=== PATIENT | male | born 1980 | race Caucasian/White ===

== ENCOUNTER 2019-07-27 18:29 | Emergency (ER) | payer BC ==
[2019-07-27] MEDS ORDERED: Sodium Chloride 0.9% 10 ML Syringe FLUSH PRN (18:38)
--- NOTE | 2019-07-27 18:38 | EDM.PDOC ---
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 Assessment:: As above Plan: As above. Extensive precautions were given to the patient and his , who are in agreement with the treatment plan. See Patient Instructions for further treatment and plan.
[2019-07-27] MEDS ORDERED: Bacitracin/Neomycin/Polymyxin B Oint 0.9 GM U/D Packet TOP ONE (18:42)
[2019-07-27 19:15] LABS: CHLORIDE,CL 98 mmol/L (98-107); SODIUM,NA 137 mmol/L (136-145)
[2019-07-27 19:42] LABS: BARBITURATE SCREEN,URINE NEGATIVE (NEGATIVE); BENZODIAZEPINES SCREEN,URINE NEGATIVE (NEGATIVE); TCA SCREEN,URINE NEGATIVE (NEGATIVE); THC SCREEN,URINE 50 NG/ML NEGATIVE (NEGATIVE)
== END 2019-07-27 19:55 | disposition home or self-care (01) ==
LOC: LL.ED 18:29
DX: S01.01XA Laceration without foreign body of scalp, initial encounter (principal); S20.212A Contusion of left front wall of thorax, initial encounter; S00.03XA Contusion of scalp, initial encounter; M15.0 Primary generalized (osteo)arthritis; I10 Essential (primary) hypertension; I49.3 Ventricular premature depolarization; F41.8 Other specified anxiety disorders; I45.2 Bifascicular block; K21.9 Gastro-esophageal reflux disease without esophagitis; Z79.899 Other long term (current) drug therapy
CPT/HCPCS: 36415; 71101-LT; 80053; 80305-QW; 81001; 82150; 83605; 83690; 83735; 84550; 85025; 85610; 85730; 87086; 99284-25; G0480; J2001

== ENCOUNTER 2020-12-09 21:30 | Emergency (ER) | payer BC ==
[2020-12-09] MEDS ORDERED: Sodium Chloride 0.9% 10 ML Syringe FLUSH PRN (21:51)
[2020-12-09] MEDS ORDERED: Sodium Chloride 0.9% 1,000 ML IV ONE (21:51)
[2020-12-09] MEDS ORDERED: LORazepam 2 MG/ML SDV IVPUSH ONE (21:51)
--- NOTE | 2020-12-09 21:52 | EDM.PDOC ---
ED HPI GENERAL MEDICAL PROBLEM - General Chief Complaint: General Stated Complaint: HIGH BLOOD PRESSURE, GENERAL FEELING OF UNWELL Time Seen by Provider: 12/09/20 21:33 Source of Information: Reports: Patient, Family History Limitations: Reports: No Limitations - History of Present Illness INITIAL COMMENTS - FREE TEXT/NARRATIVE: Patient comes to ER complaining of anxiety. Reports that he drank too much last night. Usually drinks 3-4 [place] nightly but had higher amount yesterday. Dry heaves/decreased PO intake today. BP elevated. Has history of anxiety. Also history of LBBB which was noted on EKG back in 2013 here during ER visit. At that time there was concern that patient might have acute coronary syndrome but that was ruled out by [facility]. No diagnosis of CAD/VA. Denies chest pain. No fevers/chills. Feels hungover. No vision change/runny nose/sore throat. No cough/wheeze/SOB No chest pain/palpitations/syncope No bowel changes/hematemesis/blood in stool/abdominal pain. Has had nausea/emesis as noted above. No urinary changes. No focal neuro changes/weakness/limb changes. Denies DTs if he does not drink ETOH. - Related Data Allergies Allergy/AdvReac Type Severity Reaction Status Date / Time No Known Drug Allergies Allergy NKDA Verified 12/09/20 21:39 Home Meds: Home Meds Metoprolol Succinate [Toprol XL] 50 mg PO DAILY 11/22/13 [History] Omeprazole Magnesium [Prilosec Otc] 20 mg PO DAILY 11/22/13 [History] Lisinopril 5 mg PO DAILY 09/25/17 [History] Acetaminophen 650 mg PO Q4HR PRN 07/27/19 [History] Ibuprofen [Advil] 400 mg PO Q6H PRN 07/27/19 [History] Past Medical History HEENT History: Reports: Impaired Vision Cardiovascular History: Reports: Arrhythmia, Hypertension, Other (See Below). 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 PVCs initially diagnosed in September 2017. Gastrointestinal History: Reports: Gastritis, GERD, Other (See Below) Other Gastrointestinal History: Benign hyperplastic gastric polyp at the greater curvature by EGD in September 2017 as below Musculoskeletal History: Reports: Arthritis, Fracture, Osteoarthritis, Other (See Below) Other Musculoskeletal History: Mid radial and ulnar fracture at age 9. Right calcaneus fracture at age 10. Neurological History: Reports: Concussion, Headaches, Chronic, Head Trauma, Other (See Below) Other Neuro History: Head concussion on 01/03/12 with trauma code at that time. Psychiatric History: Reports: Addiction, Anxiety, Depression, Other (See Below) Other Psychiatric History: Possible alcohol abuse history as below. 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 - Infectious Disease History Infectious Disease History: Reports: Chicken Pox, MRSA (Of the hand in 2006) Other Infectious Disease History: mrsa - hand - Past Surgical History HEENT Surgical History: Reports: None Cardiovascular Surgical History: Reports: None GI Surgical History: Reports: EGD, Hernia Repair/Other, Other (See Below) Other GI Surgeries/Procedures: EGD with gastric polypectomy on 09/28/17. Inguinal Hernia repair as an infantside unknown. Neurological Surgical History: Reports: None Other Musculoskeletal Surgeries/Procedures:: arm surgery - Past Imaging History Past Imaging History: Reports: CAT Scan (CT of the sinuses on 02/19/18. CT of the abdomen and pelvis on 09/08/17. CT of the chest on 09/08/17 and 05/04/14. CT of the head and C-spine on 01/03/12), PFT (2013), Sleep Study (2013), Ultrasound (Gallbladder ultrasound on 03/21/14.) Social & Family History - Family History Cardiac: Reports: CAD, Hypertension, VA, Stent, Other (See Below) Other Cardiac Family History: Maternal grandmother with fatal VA at age 78. Maternal grandfather with fatal VA in his 50s. Maternal aunt with PTCA/stent in her 70s. Hypertension in parents. : Reports: Renal Calculus, Other (See Below) Other Family History: Father with urolithiasis. Neurological: Reports: CVA, TIA, Other (See Below) Other Neurological Family History: Paternal grandfather with CVA in his 60s. Dad with TIA at age 70. Endocrine/Metabolic: Reports: Diabetes, type II, Hypothyroidism, IDDM, Other (See Below) Other Endocrine/Metabolic Family History: Mother with possible hypothyroidism. Paternal grandfather with IDDM. Oncologic: Reports: Other (See Below) Other Oncologic Family History: Maternal uncle with unknown type of fatal bone marrow cancer in his 60s. - Tobacco Use Tobacco Use Status *Q: Never Tobacco User - Caffeine Use Caffeine Use: Reports: Soda (12 sodas per day), Tea (Very occasional). Denies: Coffee, Energy Drinks Other Caffeine Use: regular pop - Alcohol Use Alcohol Use History: Yes Days Per Week of Alcohol Use: 7 Number of Drinks Per Day: 4 (Patient admits to 3-4+ [place] Lights daily. Denies hard liquor use) Total Drinks Per Week: 28 Alcohol Use Frequency: Daily - Recreational Drug Use Recreational Drug Use: No Drug Use in Last 12 Months: No - Living Situation & Occupation Living situation: Reports: with Family, (3 children) Occupation: Employed ([employer]) ED ROS GENERAL - Review of Systems Review Of Systems: Comprehensive ROS is negative, except as noted in HPI. ED EXAM, GENERAL - Physical Exam Exam: See Below Exam Limited By: No Limitations General Appearance: Alert, WD/WN, No Apparent Distress Eye Exam: Bilateral Eye: EOMI, PERRL Ears: Normal External Exam, Hearing Grossly Normal Nose: No: Nasal Deformity, Nasal Swelling, Nasal Drainage Throat/Mouth: Normal Lips, Normal Voice, No Airway Compromise Head: Atraumatic, Normocephalic Neck: Supple, Full Range of Motion Respiratory/Chest: No Respiratory Distress, Lungs Clear, Normal Breath Sounds, No Accessory Muscle Use, Chest Non-Tender Cardiovascular: Normal Peripheral Pulses, Regular Rate, Rhythm, No Edema, No Murmur Peripheral Pulses: 2+: Radial (L), Radial (R), Dorsalis Pedis (L), Dorsalis Pedis (R) GI/Abdominal: Normal Bowel Sounds, Soft, Non-Tender, No Distention (Male) Exam: Deferred Rectal (Males) Exam: Deferred Back Exam: No: Muscle Spasm Extremities: Non-Tender, No Pedal Edema, Normal Capillary Refill Neurological: Alert, Oriented, CN II-XII Intact, Normal Cognition, Normal Gait, No Motor/Sensory Deficits Psychiatric: Normal Affect, Normal Mood Skin Exam: Warm, Dry, Intact, Normal Color #1 Interpretation EKG Date: 12/09/20 Time: 21:34 Rhythm: NSR Rate (Beats/Min): 77 [place]: Normal P-Wave: Present QRS: LBBB ST-T: Normal QT: Normal Comparison: No Change (previous EKG from 2013 showed similar LBBB.) Course - Vital Signs Last Recorded V/S: Last Vital Signs Temp 37.0 C 12/09/20 21:39 Pulse 67 12/09/20 22:45 Resp 16 12/09/20 22:45 BP 114/75 12/09/20 22:45 Pulse Ox 93 L 12/09/20 22:45 - Orders/Labs/Meds Orders: Active Orders 24 hr Category Date Time Status Saline Lock Insert [OM.PC] Routine Oth 12/09/20 21:51 Ordered Labs: Laboratory Tests 12/09/20 12/09/20 Range/Units 21:55 21:55 WBC 10.3 H (4.0-10.2) K/uL RBC 5.23 (4.33-5.41) M/uL Hgb 15.8 (13.1-16.8) g/dL Hct 44.3 (39.0-49.0) % MCV 84.7 (84.0-98.0) fL MCH 30.2 (28.2-33.3) pg MCHC 35.7 (31.7-36.0) g/dL RDW 12.9 (11.2-14.1) % Plt Count 221 (150-350) K/uL Neut % (Auto) 81.2 H (45.0-80.0) % Lymph % (Auto) 11.0 (10.0-50.0) % [place] % (Auto) 7.4 (2.0-14.0) % Eos % (Auto) 0.1 (0.0-5.0) % Baso % (Auto) 0.3 (0.0-2.0) % Neut # (Auto) 8.39 H (1.40-7.00) K/uL Lymph # (Auto) 1.14 (0.50-3.50) K/uL [place] # (Auto) 0.77 (0.00-1.00) K/uL Eos # (Auto) 0.01 (0.00-0.50) K/uL Baso # (Auto) 0.03 (0.00-0.20) K/uL Sodium 135 L (136-145) mmol/L Potassium 4.0 (3.5-5.1) mmol/L Chloride 97 L (98-107) mmol/L Carbon Dioxide 24.2 (21.0-32.0) mmol/L BUN 13 (7-18) mg/dL Creatinine 0.95 (0.51-1.17) mg/dL Est Cr Clr Drug Dosing TNP Estimated GFR (MDRD) > 60 mL/min Glucose 102 H (70-99) mg/dL Calcium 8.9 (8.5-10.1) mg/dL Magnesium 1.9 (1.8-2.4) mg/dL Total Bilirubin 0.7 (0.2-1.0) mg/dL AST 24 (15-37) U/L ALT 42 (12-78) U/L Alkaline Phosphatase 63 (46-116) IU/L Troponin I 0.000 (0.000-0.056) ng/mL Total Protein 7.7 (6.4-8.2) g/dL Albumin 4.4 (3.4-5.0) g/dL Ethyl Alcohol 0.001 (0.000-0.080) g/dL Meds: Medications Discontinued Medications Generic Name Dose Route Start Last Admin Trade Name Freq PRN Reason Stop Dose Admin Sodium Chloride 1,000 mls @ 999 mls/hr 12/09/20 21:51 12/09/20 21:58 Normal Saline IV 12/09/20 22:51 999 mls/hr .BOLUS ONE Administration Lorazepam 1 mg 12/09/20 21:51 12/09/20 21:58 Ativan IVPUSH 12/09/20 21:52 1 mg ONETIME ONE Administration Ondansetron HCl 4 mg 12/09/20 21:59 12/09/20 22:37 Zofran IVPUSH 12/09/20 22:00 4 mg ONETIME ONE Administration Pantoprazole Sodium 40 mg 12/09/20 22:00 12/09/20 22:36 Protonix Iv IVPUSH 12/09/20 22:01 40 mg ONETIME ONE Administration Sodium Chloride 10 ml 12/09/20 21:51 Saline Flush FLUSH ASDIRECTED PRN Keep Vein Open Thiamine HCl 100 mg 12/09/20 21:59 12/09/20 22:37 Vitamin B-1 IVPUSH 12/09/20 22:00 100 mg ONETIME ONE Administration - Re-Assessments/Exams Free Text/Narrative Re-Assessment/Exam: 12/09/20 22:05 Patient denies chest pain. Insists that his feeling of unwellness is due to excess ETOH and increased anxiety. Baseline labs drawn. EKG showed that he continues to have LBBB which was noted back in 2013. Plan to given IV fluids/Zofran/Ativan. Will observe for improved BP/less anxiety in response to interventions. Thiamine added given potential for chronic excess ETOH use and the potential for thiamine deficiency. Long time spent discussing lifestyle changes that could be very beneficial for him, including a cleaner laboratory equipment diet and reduction/cessation of ETOH. Recommended to patient that he consider these in addition to arranging close follow up with primary care provider. Patient and his agreeable with plan. Departure - Departure Time of Disposition: 23:00 Disposition: Home, Self-Care 01 Condition: Good Clinical Impression: Anxiety, Dehydration Hangover Qualifiers: Complication of substance-induced condition: uncomplicated Qualified Code(s): F10.120 - Alcohol abuse with intoxication, uncomplicated - Discharge Information *PRESCRIPTION DRUG MONITORING PROGRAM REVIEWED*: Not Applicable *COPY OF PRESCRIPTION DRUG MONITORING REPORT IN PATIENT LORIE: Not Applicable Forms: ED Department Discharge Additional Instructions: Continue to work on good hydration (water) and rest. Advance activity as tolerated. Highly recommend adopting a better diet/reducing alcohol use as we discussed in the ER. Otherwise these problems will return/worsen. Follow up with your provider for the anxiety and continued treatment of BP/any med changes that might be needed. Sepsis Event Note (ED) - Focused Exam Vital Signs: Vital Signs Temp Pulse Resp BP Pulse Ox 12/09/20 22:45 67 16 114/75 93 L 12/09/20 22:30 67 19 123/81 98 12/09/20 22:00 69 20 141/89 H 98 12/09/20 21:39 37.0 C 82 19 159/97 H 100 - My Orders Last 24 Hours: My Active Orders 12/09/20 21:51 Saline Lock Insert [OM.PC] Routine - Assessment/Plan Last 24 Hours: My Active Orders 12/09/20 21:51 Saline Lock Insert [OM.PC] Routine
[2020-12-09] MEDS ORDERED: Thiamine 200 MG/2 ML MDV IVPUSH ONE (21:59)
[2020-12-09] MEDS ORDERED: Ondansetron 4 MG/2 ML SDV IVPUSH ONE (21:59)
[2020-12-09] MEDS ORDERED: Pantoprazole 40 MG Vial IVPUSH ONE (22:00)
[2020-12-09 22:19] LABS: CHLORIDE,CL 97 mmol/L (98-107); SODIUM,NA 135 mmol/L (136-145)
== END 2020-12-09 23:15 | disposition home or self-care (01) ==
LOC: LL.ED 21:30
DX: F41.9 Anxiety disorder, unspecified (principal); E86.0 Dehydration; F10.120 Alcohol abuse with intoxication, uncomplicated; Y90.4 Blood alcohol level of 80-99 mg/100 ml; K21.9 Gastro-esophageal reflux disease without esophagitis; I10 Essential (primary) hypertension; Z79.899 Other long term (current) drug therapy
CPT/HCPCS: 36415; 80053; 80307; 83735; 84484; 85025; 96361; 96374; 96375; 99284; C9113; J2060; J2405; J3411; J7030; 93010

== ENCOUNTER 2021-10-09 16:09 | Emergency (ER) | payer BC ==
[2021-10-09] MEDS ORDERED: Sodium Chloride 0.9% 10 ML Syringe FLUSH PRN (16:20)
[2021-10-09] MEDS ORDERED: Aspirin 81 MG Tab.Chew PO ONE (16:20)
--- NOTE | 2021-10-09 16:28 | EDM.PDOC ---
ED HPI GENERAL MEDICAL PROBLEM - General Chief Complaint: General Stated Complaint: sweats, muscle aches, SOB, chest pressure Time Seen by Provider: 10/09/21 16:15 Source of Information: Reports: Patient, Provider (PCP) History Limitations: Reports: No Limitations - History of Present Illness INITIAL COMMENTS - FREE TEXT/NARRATIVE: Jose Daniel is a 40-year-old male with a past medical history significant for essential hypertension, noncompliance to medical treatments, positive stress test in the past for which he did not follow-up with cardiology. He presented to the emergency department on 10/09/2021 from his clinic with initial reports from primary provider of atypical chest pain that radiated to the back and left arm. On arrival patient appeared mildly distressed, he reported body aches and subjective low-grade elevated temperature of 10 days duration. He did not endorse chest pain but did say that he had some epigastric area discomfort and pressure for the previous 10 days. Associated symptoms include intermittent diaphoresis. Patient is not vaccinated against influenza or COVID-19, he does not wear a mask in public nor do his children or significant other, he is unaware of any sick contacts. He has tried resting at home for his symptoms but this has not improved them. They have continued to worsen over the last 10 days. He said that the catalyst to presenting to the emergency department today was extensive body aches. Nothing makes it worse, nothing makes it better, he has never had anything like this in the past, this does not remind him of when he had pain and a positive stress test previously. Time of day does not make a difference. Onset: Gradual Onset Date: 09/29/21 Duration: Day(s): (10 days since onset), Getting Worse (body aches are significantly worse) Quality: Reports: Ache Severity: Mild Improves with: Reports: None Worsens with: Reports: None Context: Reports: Other (unknown) Associated Symptoms: Reports: Diaphoresis (intermittent), Fever/Chills (subjective. low grade with tmax ~100.0), Headaches (present for 10 days. ), Malaise, Other (chest pressure/epigastric pressure). 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) - Related Data Allergies Allergy/AdvReac Type Severity Reaction Status Date / Time No Known Drug Allergies Allergy NKDA Verified 10/09/21 16:30 Home Meds: Home Meds Metoprolol Succinate [Toprol XL] 50 mg PO DAILY 11/22/13 [History] Omeprazole Magnesium [Prilosec Otc] 20 mg PO DAILY 11/22/13 [History] Lisinopril 5 mg PO DAILY 09/25/17 [History] Acetaminophen 650 mg PO Q4HR PRN 07/27/19 [History] Ibuprofen [Advil] 400 mg PO Q6H PRN 07/27/19 [History] Past Medical History HEENT History: Reports: Impaired Vision (glasses) Cardiovascular History: Reports: Arrhythmia, Hypertension, Other (See Below) Other Cardiovascular History: 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 PVCs initially diagnosed in September 2017. positive stress test 02/07/21, non compliant with cardiology follow up Gastrointestinal History: Reports: GERD Other Gastrointestinal History: Benign hyperplastic gastric polyp at the greater curvature by EGD in September 2017 as below Musculoskeletal History: Reports: Arthritis, Fracture, Osteoarthritis, Other (See Below) Other Musculoskeletal History: Mid radial and ulnar fracture at age 9. Right calcaneus fracture at age 10. Neurological History: Reports: Concussion, Headaches, Chronic, Head Trauma, Other (See Below) Other Neuro History: Head concussion on 01/03/12 with trauma code at that time. Psychiatric History: Reports: Addiction, Anxiety, Depression, Other (See Below) Other Psychiatric History: Possible alcohol abuse history as below. 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 - Infectious Disease History Infectious Disease History: Reports: Chicken Pox, MRSA Other Infectious Disease History: mrsa - hand - Past Surgical History HEENT Surgical History: Reports: None Cardiovascular Surgical History: Reports: None GI Surgical History: Reports: EGD, Hernia Repair/Other, Other (See Below) Other GI Surgeries/Procedures: EGD with gastric polypectomy on 09/28/17. Inguinal Hernia repair as an infantside unknown. Neurological Surgical History: Reports: None Other Musculoskeletal Surgeries/Procedures:: arm surgery - Past Imaging History Past Imaging History: Reports: CAT Scan (CT of the sinuses on 02/19/18. CT of the abdomen and pelvis on 09/08/17. CT of the chest on 09/08/17 and 05/04/14. CT of the head and C-spine on 01/03/12), PFT (2013), Sleep Study (2014), Ultrasound (Gallbladder ultrasound on 03/21/14.) Social & Family History - Family History Cardiac: Reports: CAD, Hypertension, NH, Stent, Other (See Below) Other Cardiac Family History: Maternal grandmother with fatal NH at age 78. Maternal grandfather with fatal NH in his 50s. Maternal aunt with PTCA/stent in her 70s. Hypertension in parents. : Reports: Renal Calculus, Other (See Below) Other Family History: Father with urolithiasis. Neurological: Reports: CVA, TIA, Other (See Below) Other Neurological Family History: Paternal grandfather with CVA in his 60s. Dad with TIA at age 70. Endocrine/Metabolic: Reports: Diabetes, type II, Hypothyroidism, IDDM, Other (See Below) Other Endocrine/Metabolic Family History: Mother with possible hypothyroidism. Paternal grandfather with IDDM. Oncologic: Reports: Other (See Below) Other Oncologic Family History: Maternal uncle with unknown type of fatal bone marrow cancer in his 60s. - Tobacco Use Tobacco Use Status *Q: Never Tobacco User - Caffeine Use Caffeine Use: Reports: Energy Drinks, Soda Other Caffeine Use: regular pop - Alcohol Use Alcohol Use History: Yes Days Per Week of Alcohol Use: 2 Number of Drinks Per Day: 4 Total Drinks Per Week: 8 Alcohol Use in Last Twelve Months: Yes Alcohol Use Frequency: Weekly Desires Substance Cessation Medication: Refuses FDA Approved Med - Recreational Drug Use Recreational Drug Use: No Drug Use in Last 12 Months: No - Sexual History Sexual History: Reports: Single Partner - Living Situation & Occupation Living situation: Reports: with Family, (3 children) Occupation: Employed ([employer]) ED ROS GENERAL - Review of Systems Review Of Systems: See Below Constitutional: Reports: Fever, Chills, Malaise, Weakness HEENT: Reports: No Symptoms Respiratory: Denies: Shortness of Breath, Cough, Sputum, Hemoptysis Cardiovascular: Reports: Other (chest pressure/epigastric pressure) Endocrine: Reports: No Symptoms GI/Abdominal: Reports: No Symptoms : Reports: No Symptoms Musculoskeletal: Reports: Muscle Pain (diffuse) Skin: Reports: No Symptoms Neurological: Reports: No Symptoms Psychiatric: Reports: No Symptoms Hematologic/Lymphatic: Reports: No Symptoms Immunologic: Reports: No Symptoms ED EXAM, GENERAL - Physical Exam Exam: See Below Exam Limited By: Uncooperative General Appearance: Alert, Mild Distress Eye Exam: Bilateral Eye: EOMI Ears: Normal External Exam Nose: Normal Inspection, Normal Mucosa Head: Atraumatic, Normocephalic Neck: Normal Inspection, Full Range of Motion Respiratory/Chest: No Respiratory Distress, Lungs Clear, Normal Breath Sounds, No Accessory Muscle Use, Chest Non-Tender Cardiovascular: Regular Rate, Rhythm, No JVD, No Murmur, No Rub GI/Abdominal: Soft (Male) Exam: Deferred Rectal (Males) Exam: Deferred Back Exam: Full Range of Motion Extremities: Normal Range of Motion Neurological: Alert, Oriented, Normal Cognition Skin Exam: Warm, Dry. No: Diaphoretic #1 Interpretation EKG Date: 10/09/21 Rhythm: NSR [place]: LAD-Left Raritan Deviation (NSR: no acute ischemic changes noted.) P-Wave: Present QRS: Normal ST-T: Normal QT: Normal Course - Vital Signs Last Recorded V/S: Last Vital Signs Temp 98.5 F 10/09/21 16:17 Pulse 85 10/09/21 16:17 Resp 18 10/09/21 16:17 BP 114/75 10/09/21 16:17 Pulse Ox 100 10/09/21 16:17 - Orders/Labs/Meds Orders: Active Orders 24 hr Category Date Time Status Blood Glucose Check, Bedside [RC] ONETIME Care 10/09/21 16:20 Active Cardiac Monitoring [RC] . DIRECTED Care 10/09/21 16:20 Active EKG Documentation Completion [RC] ASDIRECTED Care 10/09/21 16:22 Active Oxygen Therapy [RC] PRN Care 10/09/21 16:20 Active Peripheral IV Care [RC] . DIRECTED Care 10/09/21 16:22 Active Pulse Oximetry [RC] CONTINUOUS Care 10/09/21 16:20 Active Nothing per Oral Now Diet [DIET] Diet 10/09/21 Breakfast Active Chest 1V Frontal [CR] Stat Exams 10/09/21 16:22 Taken Sodium Chloride 0.9% [Saline Flush] Med 10/09/21 16:20 Active 10 ml FLUSH ASDIRECTED PRN Peripheral IV Insertion Adult [OM.PC] Stat Oth 10/09/21 16:20 Ordered Medication Orders Sodium Chloride (Sodium Chloride 0.9% 10 Ml Syringe) 10 ml FLUSH ASDIRECTED PRN PRN Reason: Keep Vein Open Labs: Laboratory Tests 10/09/21 10/09/21 10/09/21 Range/Units 16:15 16:25 16:25 PT 10.9 (9.6-11.3) SEC INR 1.1 D-Dimer, Quantitative (0-400) ng/mL Sodium 137 (136-145) mmol/L Potassium 3.8 (3.5-5.1) mmol/L Chloride 98 (98-107) mmol/L Carbon Dioxide 28.6 (21.0-32.0) mmol/L Anion Gap 10.4 (7-15) meq/L BUN 14 (7-18) mg/dL Creatinine 1.40 H (0.51-1.17) mg/dL Est Cr Clr Drug Dosing TNP Estimated GFR (MDRD) 56 mL/min Glucose 100 H (70-99) mg/dL Lactic Acid (0.4-2.0) mmol/L Calcium 8.7 (8.5-10.1) mg/dL Magnesium 2.5 H (1.8-2.4) mg/dL Ferritin (8-388) ng/mL Total Bilirubin 0.4 (0.2-1.0) mg/dL AST 36 (15-37) U/L ALT 54 (12-78) U/L Alkaline Phosphatase 72 (46-116) IU/L Troponin I High Sens (<=76) ng/L Total Protein 7.8 (6.4-8.2) g/dL Albumin 4.0 (3.4-5.0) g/dL Influenza Type A RNA Negative (NEGATIVE) RSV RNA (INAAT) Negative (NEGATIVE) Influenza Type B RNA Negative (NEGATIVE) SARS-CoV-2 RNA (SHARON) Positive H (NEGATIVE) 10/09/21 10/09/21 10/09/21 Range/Units 16:25 16:25 16:25 PT (9.6-11.3) SEC INR D-Dimer, Quantitative 441 H (0-400) ng/mL Sodium (136-145) mmol/L Potassium (3.5-5.1) mmol/L Chloride (98-107) mmol/L Carbon Dioxide (21.0-32.0) mmol/L Anion Gap (7-15) meq/L BUN (7-18) mg/dL Creatinine (0.51-1.17) mg/dL Est Cr Clr Drug Dosing Estimated GFR (MDRD) mL/min Glucose (70-99) mg/dL Lactic Acid 1.4 (0.4-2.0) mmol/L Calcium (8.5-10.1) mg/dL Magnesium (1.8-2.4) mg/dL Ferritin (8-388) ng/mL Total Bilirubin (0.2-1.0) mg/dL AST (15-37) U/L ALT (12-78) U/L Alkaline Phosphatase (46-116) IU/L Troponin I High Sens 7 (<=76) ng/L Total Protein (6.4-8.2) g/dL Albumin (3.4-5.0) g/dL Influenza Type A RNA (NEGATIVE) RSV RNA (INAAT) (NEGATIVE) Influenza Type B RNA (NEGATIVE) SARS-CoV-2 RNA (SHARON) (NEGATIVE) 10/09/21 Range/Units 16:25 PT (9.6-11.3) SEC INR D-Dimer, Quantitative (0-400) ng/mL Sodium (136-145) mmol/L Potassium (3.5-5.1) mmol/L Chloride (98-107) mmol/L Carbon Dioxide (21.0-32.0) mmol/L Anion Gap (7-15) meq/L BUN (7-18) mg/dL Creatinine (0.51-1.17) mg/dL Est Cr Clr Drug Dosing Estimated GFR (MDRD) mL/min Glucose (70-99) mg/dL Lactic Acid (0.4-2.0) mmol/L Calcium (8.5-10.1) mg/dL Magnesium (1.8-2.4) mg/dL Ferritin 2534 H (8-388) ng/mL Total Bilirubin (0.2-1.0) mg/dL AST (15-37) U/L ALT (12-78) U/L Alkaline Phosphatase (46-116) IU/L Troponin I High Sens (<=76) ng/L Total Protein (6.4-8.2) g/dL Albumin (3.4-5.0) g/dL Influenza Type A RNA (NEGATIVE) RSV RNA (INAAT) (NEGATIVE) Influenza Type B RNA (NEGATIVE) SARS-CoV-2 RNA (SHARON) (NEGATIVE) Meds: Medications Generic Name Dose Route Start Last Admin Trade Name Freq PRN Reason Stop Dose Admin Sodium Chloride 10 ml 10/09/21 16:20 Sodium Chloride 0.9% 10 Ml Syringe FLUSH ASDIRECTED PRN Keep Vein Open Discontinued Medications Generic Name Dose Route Start Last Admin Trade Name Freq PRN Reason Stop Dose Admin Aspirin 324 mg 10/09/21 16:20 10/09/21 16:28 Aspirin 81 Mg Tab.Chew PO 10/09/21 16:21 324 mg ONETIME ONE Administration - Re-Assessments/Exams Free Text/Narrative Re-Assessment/Exam: 10/09/21 16:34 labs ordered, EKG and CXR ordered. COVID/RSV/influenza swab positive. afebrile and hemodynamically stable. ASA 324 ordered 10/09/21 16:55 covid positive 10/09/21 16:57 CXR: no obvious opacities. 10/09/21 18:14 trop negative. elevated ferritin but minimal other risk factors. mildly elevated renal function but not meeting criteria for ROSARIO Departure - Departure Time of Disposition: 18:18 Disposition: Home, Self-Care 01 Condition: Fair Clinical Impression: COVID-19 virus infection - Discharge Information *PRESCRIPTION DRUG MONITORING PROGRAM REVIEWED*: Not Applicable *COPY OF PRESCRIPTION DRUG MONITORING REPORT IN PATIENT LORIE: Not Applicable Instructions: COVID-19 Vaccine Information, 10 Things You Can Do to Manage Your COVID-19 Symptoms at Home - CDC (04/26/2021), How to Wear and Take Off Your Mask - CDC (01/10/2021), COVID-19: How to Protect Yourself and Others - [facility] Referrals: Leda Winter PA-C [Primary Care Provider] - Forms: ED Department Discharge Additional Instructions: - quarantine per CDC guidelines - wear mask when in public after quarantine is complete - recommend full vaccination and booster for COVID 19 and influenza. - acetaminophen 650mg every 6 hours as needed for body aches and temp elevation >100.4 - return to ED if shortness of breath presents itself or fever fails to resolve with acetaminophen - avoid NSAIDs - follow up with PCP when quarantine is over, recommend recheck renal function Sepsis Event Note (ED) - Evaluation Sepsis Screening Result: No Definite Risk - Focused Exam Vital Signs: Vital Signs Temp Pulse Resp BP Pulse Ox 10/09/21 16:17 98.5 F 85 18 114/75 100 - My Orders Last 24 Hours: My Active Orders 10/09/21 Breakfast Nothing per Oral Now Diet [DIET] 10/09/21 16:20 Blood Glucose Check, Bedside [RC] ONETIME Cardiac Monitoring [RC] . DIRECTED Oxygen Therapy [RC] PRN Pulse Oximetry [RC] CONTINUOUS Sodium Chloride 0.9% [Saline Flush] 10 ml FLUSH ASDIRECTED PRN Peripheral IV Insertion Adult [OM.PC] Stat 10/09/21 16:22 EKG Documentation Completion [RC] ASDIRECTED Peripheral IV Care [RC] . DIRECTED Chest 1V Frontal [CR] Stat - Assessment/Plan Last 24 Hours: My Active Orders 10/09/21 Breakfast Nothing per Oral Now Diet [DIET] 10/09/21 16:20 Blood Glucose Check, Bedside [RC] ONETIME Cardiac Monitoring [RC] . DIRECTED Oxygen Therapy [RC] PRN Pulse Oximetry [RC] CONTINUOUS Sodium Chloride 0.9% [Saline Flush] 10 ml FLUSH ASDIRECTED PRN Peripheral IV Insertion Adult [OM.PC] Stat 10/09/21 16:22 EKG Documentation Completion [RC] ASDIRECTED Peripheral IV Care [RC] . DIRECTED Chest 1V Frontal [CR] Stat Assessment:: COVID 19 viral infection: chest pressure - covid 19 positive, ferritin, INR and d dimer elevated - EKG: no acute ischemic change - trop: negative Plan: - quarantine per CDC guidelines - wear mask when in public after quarantine is complete - recommend full vaccination and booster for COVID 19 and influenza. - acetaminophen 650mg every 6 hours as needed for body aches and temp elevation >100.4 - return to ED if shortness of breath presents itself or fever fails to resolve with acetaminophen - avoid NSAIDs - follow up with PCP when quarantine is over, recommend recheck renal function
[2021-10-09 16:55] LABS: CORONAVIRUS COVID-19 NAA POSITIVE (NEGATIVE); RESPIRATORY SYNCYTIAL VIR NAA NEGATIVE (NEGATIVE)
[2021-10-09 17:05] LABS: ANION GAP 10.4 meq/L (7-15); CHLORIDE,CL 98 mmol/L (98-107); SODIUM,NA 137 mmol/L (136-145)
== END 2021-10-09 18:30 | disposition home or self-care (01) ==
LOC: LL.ED 16:09
DX: U07.1 COVID-19 (principal); I10 Essential (primary) hypertension; K21.9 Gastro-esophageal reflux disease without esophagitis; Z79.899 Other long term (current) drug therapy; Z20.822 Contact with and (suspected) exposure to COVID-19
CPT/HCPCS: 0241U; 71045; 80053; 82728; 83605; 83735; 84484; 85379; 85610; 93005; 99284; A9270

== ENCOUNTER 2021-10-20 13:49 | Emergency (ER) | payer BC ==
[2021-10-20] MEDS ORDERED: LORazepam 0.5 MG Tab PO ONE ×2 (14:22→14:23)
--- NOTE | 2021-10-21 00:47 | EDM.PDOC ---
ED HPI GENERAL MEDICAL PROBLEM - General Chief Complaint: General Stated Complaint: anxiety Time Seen by Provider: 10/20/21 14:05 Source of Information: Reports: Patient History Limitations: Reports: No Limitations - History of Present Illness INITIAL COMMENTS - FREE TEXT/NARRATIVE: Pt. presents to ER with complaints of anxiety. He states that he normally takes vistaril for anxiety and states that this hasn't helped. Pt. states that he "overdid it drinking" the night before. Pt. states that he drank about 8 beers last night, and was unable to specify what he meant by "overdid it". He states that he drinks about 8 beers possibly 3 nights a week. No hard alcohol or street drug use. Pt. states that he doesn't get agitated or have "the shakes" when he doesn't drink. It appears that he previously was on fluoxetine but is not currently taking this medication. He was unable to specify why, when he stopped, or why he stopped. He denies any suicidal/homicidal ideation. 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) - Related Data Allergies Allergy/AdvReac Type Severity Reaction Status Date / Time No Known Drug Allergies Allergy NKDA Verified 10/20/21 13:52 Home Meds: Home Meds Metoprolol Succinate [Toprol XL] 50 mg PO DAILY 11/22/13 [History] Omeprazole Magnesium [Prilosec Otc] 20 mg PO DAILY 11/22/13 [History] Lisinopril 5 mg PO DAILY 09/25/17 [History] Acetaminophen 650 mg PO Q4HR PRN 07/27/19 [History] hydrOXYzine pamoate [Vistaril] 1 cap PO TID PRN 10/09/21 [History] Past Medical History HEENT History: Reports: Impaired Vision Cardiovascular History: Reports: Arrhythmia, Hypertension, Other (See Below) Other Cardiovascular History: 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 PVCs initially diagnosed in September 2017. positive stress test 02/07/21, non compliant with cardiology follow up Gastrointestinal History: Reports: GERD Other Gastrointestinal History: Benign hyperplastic gastric polyp at the greater curvature by EGD in September 2017 as below Musculoskeletal History: Reports: Arthritis, Fracture, Osteoarthritis, Other (See Below) Other Musculoskeletal History: Mid radial and ulnar fracture at age 9. Right calcaneus fracture at age 10. Neurological History: Reports: Concussion, Headaches, Chronic, Head Trauma, Other (See Below) Other Neuro History: Head concussion on 01/03/12 with trauma code at that time. Psychiatric History: Reports: Addiction, Anxiety, Depression, Other (See Below) Other Psychiatric History: Possible alcohol abuse history as below. 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 - Infectious Disease History Infectious Disease History: Reports: Chicken Pox, MRSA Other Infectious Disease History: mrsa - hand - Past Surgical History HEENT Surgical History: Reports: None Cardiovascular Surgical History: Reports: None GI Surgical History: Reports: EGD, Hernia Repair/Other, Other (See Below) Other GI Surgeries/Procedures: EGD with gastric polypectomy on 09/28/17. Inguinal Hernia repair as an infantside unknown. Neurological Surgical History: Reports: None Other Musculoskeletal Surgeries/Procedures:: arm surgery - Past Imaging History Past Imaging History: Reports: CAT Scan (CT of the sinuses on 02/19/18. CT of the abdomen and pelvis on 09/08/17. CT of the chest on 09/08/17 and 05/04/14. CT of the head and C-spine on 01/03/12), PFT (2013), Sleep Study (2013), Ultrasound (Gallbladder ultrasound on 03/21/14.) Social & Family History - Family History Cardiac: Reports: CAD, Hypertension, NV, Stent, Other (See Below) Other Cardiac Family History: Maternal grandmother with fatal NV at age 78. Maternal grandfather with fatal NV in his 50s. Maternal aunt with PTCA/stent in her 70s. Hypertension in parents. : Reports: Renal Calculus, Other (See Below) Other Family History: Father with urolithiasis. Neurological: Reports: CVA, TIA, Other (See Below) Other Neurological Family History: Paternal grandfather with CVA in his 60s. Dad with TIA at age 70. Endocrine/Metabolic: Reports: Diabetes, type II, Hypothyroidism, IDDM, Other (See Below) Other Endocrine/Metabolic Family History: Mother with possible hypothyroidism. Paternal grandfather with IDDM. Oncologic: Reports: Other (See Below) Other Oncologic Family History: Maternal uncle with unknown type of fatal bone marrow cancer in his 60s. - Tobacco Use Tobacco Use Status *Q: Never Tobacco User Second Hand Smoke Exposure: No - Caffeine Use Caffeine Use: Reports: Energy Drinks, Soda Other Caffeine Use: regular pop - Recreational Drug Use Recreational Drug Use: No - Sexual History Sexual History: Reports: Single Partner - Living Situation & Occupation Living situation: Reports: with Family, (3 children) Occupation: Employed ([employer]) ED ROS GENERAL - Review of Systems Review Of Systems: Comprehensive ROS is negative, except as noted in HPI. ED EXAM, GENERAL - Physical Exam Exam: See Below Exam Limited By: No Limitations General Appearance: Alert, WD/WN, No Apparent Distress Head: Atraumatic, Normocephalic Neck: Normal Inspection, Supple, Non-Tender, Full Range of Motion Respiratory/Chest: No Respiratory Distress, Lungs Clear, Normal Breath Sounds, No Accessory Muscle Use, Chest Non-Tender Cardiovascular: Normal Peripheral Pulses, Regular Rate, Rhythm, No Edema, No Gallop, No JVD, No Murmur, No Rub Neurological: Alert, Oriented, CN II-XII Intact, Normal Cognition, Normal Gait, No Motor/Sensory Deficits, Other (No tremor) Psychiatric: Flat Affect, Other (Denies suicidal or homicidal ideation.) Course - Vital Signs Last Recorded V/S: Last Vital Signs Temp 37.3 C 10/20/21 13:58 Pulse 99 10/20/21 13:58 Resp 20 10/20/21 13:58 BP 144/79 H 10/20/21 13:58 Pulse Ox 100 10/20/21 13:58 - Orders/Labs/Meds Meds: Medications Discontinued Medications Generic Name Dose Route Start Last Admin Trade Name Gillian PRN Reason Stop Dose Admin Lorazepam 0.5 mg 10/20/21 14:22 10/20/21 14:35 Lorazepam 0.5 Mg Tab PO 10/20/21 14:23 0.5 mg ONETIME ONE Administration Lorazepam 0.5 mg 10/20/21 14:23 10/20/21 14:35 Lorazepam 0.5 Mg Tab PO 10/20/21 14:24 0.5 mg ONETIME ONE Administration Departure - Departure Time of Disposition: 14:45 Disposition: Home, Self-Care 01 Clinical Impression: Anxiety - Discharge Information Instructions: Generalized Anxiety Disorder, Adult, Lorazepam tablets Referrals: Leda Winter PA-C [Primary Care Provider] - Forms: ED Department Discharge Additional Instructions: I can only give you enough lorazepam for today and tonight. Follow-up with Leda Winter or one of her partners tomorrow to discuss your anxiety. Lorazepam 0.5mg 1 every 8 hours for anxiety You can continue with your hydroxyzine Do not consume any alcohol when taking either medication. Sepsis Event Note (ED) - Evaluation Sepsis Screening Result: No Definite Risk - Focused Exam Vital Signs: Vital Signs Temp Pulse Resp BP Pulse Ox 10/20/21 13:58 37.3 C 99 20 144/79 H 100 - Problem List Review Problem List Initiated/Reviewed/Updated: Yes - Assessment/Plan Plan: Pt. was given lorazepam 0.5mg tab, one tab for now, another for bed tonight. I would like him to follow-up with Erika Winter PA-C to discuss restarting his fluoxetine. He was resistive to discussing his symptoms today. I am not certain he was 100% truthful with us today, as he has alcohol dependance listed as a diagnosis and had been seen in ER for acute anxiety in the past after consuming ETOH the night before. He did not appear to be experiencing any DTs or ag itation, but was advised to return to ER if he does develop these symptoms. Advised to return to ER if he has any feelings of wanting to harm himself or others.
== END 2021-10-20 14:38 | disposition home or self-care (01) ==
LOC: LL.ED 13:49
DX: F41.9 Anxiety disorder, unspecified (principal); I10 Essential (primary) hypertension; K21.9 Gastro-esophageal reflux disease without esophagitis; Z79.899 Other long term (current) drug therapy
CPT/HCPCS: 99283; 99284; A9270-GY

== ENCOUNTER 2024-10-27 09:29 | Day surgery (SDC) | payer BC ==
[~2024-10-27 09:29] MED LIST: Propofol 200 MG/20 ML SDV ONE; Sodium Chloride 0.9% 10 ML Syringe FLUSH PRN
[2024-10-27] MEDS: Lactated Ringers 1,000 ML IV SCH (10:06)
[2024-10-27] MEDS ORDERED: Lidocaine 2% 5 ML SDV ONE (10:27)
[2024-10-27] MEDS ORDERED: Lidocaine 1% 5 ML VIAL ONE (10:27)
== END 2024-10-27 11:20 | disposition home or self-care (01) ==
LOC: LL.SDS 09:29
PROVIDERS: ATTEND Surgery
DX: K21.9 Gastro-esophageal reflux disease without esophagitis (principal); I10 Essential (primary) hypertension; F41.9 Anxiety disorder, unspecified
CPT/HCPCS: 00731; J2704; J3490; J7120